=== PATIENT | female | born 1980 | race Caucasian/White ===

== ENCOUNTER 2019-09-20 13:26 | Emergency (ER) | payer OTHER, MEDICAID, SELFPAY ==
--- NOTE | 2019-09-20 13:44 | ED.URI ---
HPI - URI/Sore Throat General Chief Complaint: Ear Stated Complaint: Earache Time Seen by Provider: 09/20/19 13:44 Source: patient and RN notes reviewed History of Present Illness HPI Narrative: Patient is a 39-year-old female presents the urgent care with complaints of left ear pain since yesterday. Patient states she is used ibuprofen and Tylenol. Denies any known fever, chills, nausea, vomiting. No other acute complaints. No acute distress noted. Patient aware of plan of care. Related Data Allergies Allergy/AdvReac Type Severity Reaction Status Date / Time No Known Allergies Allergy Unknown Verified 09/20/19 14:10 Review of Systems Review of Systems: Narrative: CONSTITUTIONAL: Denies fever, chills, or sweats. EYES: Denies visual changes, redness, or discharge. ENT: Reports of left ear pain CARDIOVASCULAR: Denies chest pain, palpitations, or edema. RESPIRATORY: Denies cough or dyspnea. GASTROINTESTINAL: Denies abdominal pain, nausea, vomiting, or diarrhea. GENITOURINARY: Denies dysuria or hematuria. SKIN: Denies rash or itching. MUSCULOSKELETAL: Denies back pain, joint pain, or myalgia. NEUROLOGIC: Denies headache, numbness, or weakness. All other systems reviewed are negative, except as documented in HPI. [facility] Family History Family History (Updated 04/03/14 @ 07:13 by DOCTOR UNKNOWN) Mother Family history of malignant neoplasm of ovary Father Family history of seizure disorder Family history of heart disease in male family member before age 55 Social History Social History Smoking status: Smoker, status unknown Comments At the time of my signature, I reviewed and agree with the nursing past medical, surgical, social, and family history. There is no relevant family history pertinent to the patient complaint. Exam Narrative: Exam Narrative: GENERAL: This is a well-nourished, well-developed patient, in no apparent distress. HEAD: normocephalic, atraumatic. EYES: PERRL. Sclera clear/white. Vision is grossly intact. EARS: External ears normal, right auditory canals clear and without drainage, moderately injected left TM with mild effusion and spontaneous rupture with yellow drainage, right TMs normal without perforation. Hearing grossly intact. NOSE: External nose normal with no obvious nasal discharge, nares without redness, no rhinorrhea. THROAT: Mucous membranes moist, posterior pharynx clear. NECK: Neck supple CARDIOVASCULAR: Regular rate and rhythm without murmurs, gallops, or rubs. RESPIRATORY: Clear to auscultation. Breath sounds equal bilaterally. No wheezes, rales, or rhonchi. SKIN: warm, intact with no suspicious lesions or rash, good texture and turgor. NEURO: awake, alert, and oriented to person, place and time. There were no obvious focal neurologic abnormalities. EXTREMITIES: No clubbing, cyanosis, or edema. Course Vital Signs Vital signs: Vital Signs Temperature 99.3 F 09/20/19 14:00 Pulse Rate 57 L 09/20/19 14:00 Respiratory Rate 22 H 09/20/19 14:00 Blood Pressure 98/65 L 09/20/19 14:00 Pulse Oximetry 97 09/20/19 14:00 Temperature 99.3 F 09/20/19 14:00 Pulse Rate 57 L 09/20/19 14:00 Respiratory Rate 22 H 09/20/19 14:00 Blood Pressure 98/65 L 09/20/19 14:00 Pulse Oximetry 97 09/20/19 14:00 Reviewed MDM - URI/Sore Throat MDM Narrative Medical decision making narrative: Advised the patient to continue using ibuprofen as needed for pain. May use warm compress to the left ear for comfort. Complete oral antibiotic regimen as prescribed. Make sure to eat and drink with medication. Follow-up with PCP within 2 to 5 days or for worsening symptoms or failure to improve. Differential Diagnosis Differential diagnosis: Likely upper respiratory infection, otitis media, sinusitis, viral infection, bronchitis, influenza and pharyngitis Critical Care Time Critical Care Time Critical Care Time: No Discharge Plan Discharge Clinical Impression: Otitis media Qu
[2019-09-20 14:00] VITALS: BP 98/65; PULSE 57; RESP 22; TEMP 37.4; O2SAT 97
== END 2019-09-20 14:20 | disposition home or self-care (01) ==
PROVIDERS: Emergency Provider Nurse Practitioner Family
DX: H66.92 Otitis media, unspecified, left ear (principal)
CPT/HCPCS: 99213; G0463

== ENCOUNTER 2019-09-30 12:26 | Emergency (ER) | payer OTHER, MEDICAID, SELFPAY ==
[2019-09-30 13:45] VITALS: BP 100/84; PULSE 55; RESP 18; TEMP 38.1; O2SAT 97
--- NOTE | 2019-09-30 14:30 | ED.GENADULT ---
HPI - General Adult General Chief complaint: Nausea/Vomiting/Diarrhea Stated complaint: Abd pain/Vomiting Time Seen by Provider: 09/30/19 14:25 Source: patient and RN notes reviewed Mode of arrival: ambulatory Limitations: no limitations History of Present Illness HPI narrative: Patient presents today complaining of sudden onset fever, chills, body aches, headache, sore throat, rhinorrhea. Patient vomited 6 times prior to arrival and has some continued nausea. She has been receiving Ibuprofen for symptoms without relief.Patient finished a course of Medrol and amoxicillin for left otitis media a few days ago. MD complaint: Body aches, vomiting Related Data Home Medications Medication Instructions Recorded Confirmed alprazolam 1 mg PO TID PRN 09/30/19 09/30/19 cyclobenzaprine 5 mg PO HS 09/30/19 09/30/19 fluoxetine 40 mg PO BID 09/30/19 09/30/19 Allergies Allergy/AdvReac Type Severity Reaction Status Date / Time No Known Allergies Allergy Unknown Verified 09/20/19 14:10 Review of Systems Review of Systems: Narrative: CONSTITUTIONAL: Denies sweats.+Body aches, chills, subjective fever EYES: Denies visual changes, redness, or discharge. ENT: Denies congestion otalgia.+Rhinorrhea, Sore throat CARDIOVASCULAR: Denies chest pain, palpitations, or edema. RESPIRATORY: Denies cough or dyspnea. GASTROINTESTINAL: Denies abdominal pain, nausea, vomiting, or diarrhea. GENITOURINARY: Denies dysuria or hematuria. SKIN: Denies rash, itching, or wounds. MUSCULOSKELETAL: Denies back pain, joint pain, or myalgia. NEUROLOGIC: Denies numbness, tingling, or weakness.+Headache PSYCH: Denies depression or anxiety. [facility] Family History Family History (Updated 04/03/14 @ 07:13 by DOCTOR UNKNOWN) Mother Family history of malignant neoplasm of ovary Father Family history of seizure disorder Family history of heart disease in male family member before age 55 Social History Social History Smoking status: Smoker, status unknown Comments At time of signature, I have reviewed and agree with nursing past medical, surgical, social and family history unless otherwise noted. Please see nursing chart for further information. There is no relevant family history pertinent to the presenting complaint Exam Narrative: Exam Narrative: GENERAL: Ill-appearing, well-nourished,Shivering HEAD: Normocephalic, atraumatic. EYES: EOMI. No redness or drainage. Conjunctivae normal. ENT: Mucous membranes pink and moist. Nares clear. No rhinorrhea. TMs normal bilaterally. Throat normal. Uvula midline. NECK: Normal AROM. Supple. No lymphadenopathy. CHEST: No respiratory distress. Clear to auscultation. HEART: Regular rate and rhythm. No murmur appreciated. Normal peripheral pulses. ABDOMEN: Soft, nontender, nondistended, normal active bowel sounds. MUSCULOSKELETAL: No bony tenderness. EXTREMITIES: Normal range of motion. No edema. SKIN: Warm, dry, no rash. NEURO: No focal deficits. Alert and oriented x3. Gait steady. PSYCH: Normal affect. No signs of depression or anxiety. Course Vital Signs Vital signs: Vital Signs Temperature 100.6 F H 09/30/19 13:45 Pulse Rate 55 L 09/30/19 13:45 Respiratory Rate 18 09/30/19 13:45 Blood Pressure 100/84 09/30/19 13:45 Pulse Oximetry 97 09/30/19 13:45 Temperature 100.6 F H 09/30/19 14:37 Pulse Rate 55 L 09/30/19 13:45 Respiratory Rate 18 09/30/19 13:45 Blood Pressure 100/84 09/30/19 13:45 Pulse Oximetry 97 09/30/19 13:45 Reviewed Medical Decision Making Differential Diagnosis Differential Diagnosis: Influenza, URI, viral syndrome Vital Signs Vital Signs: Vital Signs Temperature 100.6 F H 09/30/19 13:45 Pulse Rate 55 L 09/30/19 13:45 Respiratory Rate 18 09/30/19 13:45 Blood Pressure 100/84 09/30/19 13:45 Pulse Oximetry 97 09/30/19 13:45 Temperature 100.6 F H 09/30/19 14:37 Pulse Rate 55 L 09/30/19 13:45 Respiratory Rate 18 02
[2019-09-30 14:37] VITALS: TEMP 38.1
[2019-09-30] MEDS: ONDANSETRON HCL ODT 4 MG TABLET SUBLINGUAL (14:37)
[2019-09-30] MEDS: ACETAMINOPHEN 325 MG TABLET 650 MG PO (14:37)
== END 2019-09-30 15:20 | disposition home or self-care (01) ==
PROVIDERS: Emergency Provider Nurse Practitioner; PCP Family Medicine
DX: R11.2 Nausea with vomiting, unspecified (principal); R50.9 Fever, unspecified; R51 Headache; J02.9 Acute pharyngitis, unspecified; J34.89 Other specified disorders of nose and nasal sinuses
CPT/HCPCS: 87804; 99213; A9270; G0463

== ENCOUNTER 2023-12-25 13:07 | Emergency (ER) | payer BC, MEDICAID, SELFPAY ==
--- NOTE | ~2023-12-25 | XR_ITS ---
EXAMINATION: XR foot RT min 3V DATE: 12/25/2023 14:02 INDICATION: Right foot pain. Inability to bear weight. TECHNIQUE: 4 views of right foot were obtained. COMPARISON: None. FINDINGS: Bone alignment is normal. No acute fracture. Joint spaces are normal. IMPRESSION: 1. No fracture. Reviewed, dictated and finalized at location A. IMPRESSION: 1. No fracture.
[2023-12-25 13:16] VITALS: BP 114/57; PULSE 109; RESP 18; TEMP 36.9; O2SAT 100
--- NOTE | 2023-12-25 15:18 | ED.LOWEXIN ---
HPI - Extremity Injury (Lower) General Chief Complaint: Extremity Injury, Lower Stated Complaint: Right Foot Injury Time Seen by Provider: 12/25/23 14:48 Source: patient, RN notes reviewed and old records reviewed Mode of arrival: ambulatory Limitations: no limitations History of Present Illness HPI Narrative: 43-[facility] complaint of right foot pain after tripping on a stick yesterday. Patient endorses swelling dorsal foot and increased pain with activity. Patient denies numbness, tingling, pertinent medical history, allergies. Patient was able to drive herself to [facility] today and ambulate and to waiting room. Patient in no acute distress in exam room Related Data Home Medications Medication Instructions Recorded Confirmed alprazolam 1 mg tablet 1 mg PO TID PRN Anxiety 09/30/19 09/30/19 cyclobenzaprine 5 mg tablet 5 mg PO HS 09/30/19 09/30/19 fluoxetine 40 mg capsule 40 mg PO BID 09/30/19 09/30/19 Allergies Allergy/AdvReac Type Severity Reaction Status Date / Time No Known Allergies Allergy Unknown Verified 06/28/22 09:00 Review of Systems Review of Systems: All systems reviewed & are unremarkable except as noted in HPI and below Constitutional: Constitutional: Reports no additional constitutional complaints Eyes: Eyes: Reports no additional eye complaints ENT: Reports system reviewed and no additional complaints, except as documented Cardiovascular: Cardiovascular: Reports no additional cardiovascular complaints, Denies chest pain and Denies dyspnea Respiratory: Respiratory: Reports no additional respiratory complaints, Denies cough and Denies dyspnea Musculoskeletal: Musculoskeletal: Reports as per HPI, Denies deformity, Reports arthralgias, Reports joint swelling, Denies numbness and Denies tingling Comments: right foot Neurologic: Reports system reviewed and no additional complaints, except as documented Psychiatric: Psychiatric: Reports no additional psychiatric complaints [facility] Family History Family History Mother Family history of malignant neoplasm of ovary Father Family history of seizure disorder Family history of heart disease in male family member before age 55 Social History Social History Social History: current smoker Smoking status: Current every day smoker Alcohol intake: never Lack of Transportation: No Lack of Food: Never True Current Housing: I Have Housing Concerned About Future Housing: No Difficulty Paying Gas/Electric Bills: No Difficulty Paying for Meds: No Currently Unemployed: No Education: High School Diploma/GED Difficulty w/ Childcare or Family Care: No Comments At the time of my signature, I reviewed and agree with the nursing past medical, surgical, social, and family history. There is no relevant family history pertinent to the patient complaint. Exam Const: General: cooperative, healthy appearing, no acute distress, alert, uncomfortable and well nourished Nutritional Appearance: well nourished Orientation/consciousness: patient oriented x3 Limitations: no limitations HENMT: Head: normal to inspection Ears: external ears normal Face/Nose/Sinus: Normal external nose present, Normal nares present, normal facial exam, No erythema and No edema Face and sinus: normal facial exam, no erythema and no edema Mouth: Yes Normal oral and palatal mucosa present Eyes: General: appearance normal, both eyes and all related structures Neck: Neck: normal visual inspection, full ROM and no meningeal signs Lymphatic: no lymphadenopathy noted and no lymphedema noted Chest: Chest palpation & inspection: normal inspection of the chest Resp: Effort & Inspection: normal respiratory effort and able to speak in complete sentences Auscultation: clear to auscultation bilaterally Cardio: Jugular ve
== END 2023-12-25 15:41 | disposition home or self-care (01) ==
PROVIDERS: Emergency Provider Nurse Practitioner Family
DX: S93.601A Unspecified sprain of right foot, initial encounter (principal); W18.40XA Slipping, tripping and stumbling without falling, unspecified, initial encounter; F17.210 Nicotine dependence, cigarettes, uncomplicated
CPT/HCPCS: 73630; 99213; G0463

== ENCOUNTER 2024-02-26 16:12 | Emergency (ER) | payer BC, MEDICAID, SELFPAY ==
--- NOTE | 2024-02-26 16:26 | ED.URI ---
HPI - URI/Sore Throat General Chief Complaint: Upper Respiratory Infection Stated Complaint: Chest Congestion/Ear Pain/Abdominal Pain Source: patient, RN notes reviewed and old records reviewed Mode of arrival: ambulatory Limitations: no limitations History of Present Illness HPI Narrative: 43year old female who presents to [facility] care with complaints of chest congestion, ear pain, sore throat and nausea and vomiting X3 starting today. Patient reports that she went to work today and threw up and was sent home, states nausea is better since taking Zofran. Patient reports that cough is dry denies any shortness of breath, SAO2 99% on room air, admits to long history of tobacco use. MD elicited complaint: cough, sore throat, nasal congestion and other (chest congestion, nausea and vomiting) Pertinent past history: other (tobacco abuse) Onset (ago): day(s) (1) Consistency: constant Severity: moderate Able to tolerate fluids by mouth: Yes Treatments prior to arrival: other (Zofran) Related Data Home Medications Medication Instructions Recorded Confirmed alprazolam 1 mg tablet 1 mg PO TID PRN Anxiety 09/30/19 09/30/19 cyclobenzaprine 5 mg tablet 5 mg PO HS 09/30/19 09/30/19 fluoxetine 40 mg capsule 40 mg PO BID 09/30/19 09/30/19 acetaminophen 300 mg-codeine 30 mg tablet 02/26/24 tablet brexpiprazole 0.5 mg tablet mg 02/26/24 (Rexulti) clonidine HCl 0.1 mg tablet mg 02/26/24 dextroamphetamine-amphetamine 10 02/26/24 mg tablet dextroamphetamine-amphetamine ER PO 02/26/24 15 mg 24hr capsule,extend release hydroxyzine HCl 25 mg tablet mg 02/26/24 Allergies Allergy/AdvReac Type Severity Reaction Status Date / Time No Known Allergies Allergy Unknown Verified 06/28/22 09:00 Review of Systems Review of Systems: CONSTITUTIONAL: Denies fever, chills, or sweats. EYES: Denies visual changes, redness, or discharge. ENT: Reports rhinorrhea, congestion, sore throat, or otalgia. CARDIOVASCULAR: Denies chest pain, palpitations, or edema. RESPIRATORY: Reports cough denies dyspnea. GASTROINTESTINAL: Denies abdominal pain,positive for nausea, vomiting, no diarrhea. GENITOURINARY: Denies dysuria or hematuria. SKIN: Denies rash or itching. MUSCULOSKELETAL: Denies back pain, joint pain, or myalgia. NEUROLOGIC: Denies headache, numbness, or weakness. PSYCHIATRIC: Positive for anxiety or depression. All systems reviewed & are unremarkable except as noted in HPI and below PMFSH Past Medical History Medical History (Updated 02/28/24 @ 10:43 by Evangelina Oliva NP) ADHD (attention deficit hyperactivity disorder) Anxiety and depression Bronchitis Tobacco abuse UTI (urinary tract infection) Family History Family History Mother Family history of malignant neoplasm of ovary Father Family history of seizure disorder Family history of heart disease in male family member before age 55 Social History Social History Social History: current smoker Smoking status: Current every day smoker Alcohol intake: never Lack of Transportation: No Lack of Food: Never True Current Housing: I Have Housing Concerned About Future Housing: No Difficulty Paying Gas/Electric Bills: No Difficulty Paying for Meds: No Currently Unemployed: No Education: High School Diploma/GED Difficulty w/ Childcare or Family Care: No Comments At time of signature, agree with nursing past medical, surgical, social and family history. There is no relevant family history pertinent to the presenting complaint Exam Narrative: GENERAL: chronic ill-appearing, fair-nourished, looks older than stated age,and in no acute distress. HEAD: Normocephalic, atraumatic. EYES: PERRLA and EOMI. ENT: Nares clear,clear rhinorrhea, No epistaxis. Mucous membranes moist.TM's normal with no drainage, throat red with no tonsil swel
[2024-02-26 16:32] VITALS: BP 93/51; PULSE 89; RESP 16; TEMP 36.8; O2SAT 99
[2024-02-26 17:05] LABS: EDSTREPNEGPOS1 Presumptive Negative
== END 2024-02-26 17:20 | disposition home or self-care (01) ==
PROVIDERS: Emergency Provider Registered Nurse
DX: R09.89 Other specified symptoms and signs involving the circulatory and respiratory systems (principal); R05.9 Cough, unspecified; R11.2 Nausea with vomiting, unspecified; J02.9 Acute pharyngitis, unspecified; F41.9 Anxiety disorder, unspecified; F32.A Depression, unspecified
CPT/HCPCS: 87081; 87880; 99213; G0463